=== PATIENT | male | born 1960 | race Caucasian/White ===

== ENCOUNTER → 2021-03-23 10:05 | Outpatient (BNVA) | payer BC, SELFPAY | PROVIDERS: Family Provider Nurse Practitioner; Visit Provider Family Medicine Adult Medicine | DX: J44.9 Chronic obstructive pulmonary disease, unspecified (principal); Z00.00 Encounter for general adult medical examination without abnormal findings; Z13.6 Encounter for screening for cardiovascular disorders | CPT/HCPCS: 80053; 83036; 84443; 85025; G0103 ==

== ENCOUNTER → 2022-02-27 09:41 | Outpatient (BNVA) | payer BC, SELFPAY | PROVIDERS: Family Provider Nurse Practitioner; PCP Family Medicine Adult Medicine; Visit Provider Internal Medicine Pulmonary Disease | DX: J44.1 Chronic obstructive pulmonary disease with (acute) exacerbation (principal); R05.8 Other specified cough; R06.02 Shortness of breath; J44.9 Chronic obstructive pulmonary disease, unspecified; Z87.891 Personal history of nicotine dependence | CPT/HCPCS: 71046 ==

== ENCOUNTER 2022-06-06 07:50 | Outpatient (CLI) | payer BC, SELFPAY | END 2022-06-06 07:51 | disposition home or self-care (01) | PROVIDERS: PCP Family Medicine Adult Medicine; Visit Provider Internal Medicine Pulmonary Disease | DX: J44.1 Chronic obstructive pulmonary disease with (acute) exacerbation (principal) | CPT/HCPCS: 94060; 94618; 94726; 94729; J7613 ==

== ENCOUNTER 2022-12-22 13:58 | Outpatient (CLI) | payer BC, SELFPAY ==
--- NOTE | 2022-12-22 14:05 | XR_ITS ---
WS: [id number] AP pelvis, frog leg views of both hips, 12/22/2022 Clinical Data: chronic L > R Hip pain Comparison: None. Findings: Both hips show narrowing, sclerosis, cyst formation and loss of the normal spherical head. There are no fractures or dislocations. The SI joints and pubic symphysis are normal. The soft tissues are unre markable. XR/XR hip BI 2V wo/w pel [id number] Impression: Bilateral severe osteoarthritis of the hips.
== END 2022-12-22 13:59 | disposition home or self-care (01) ==
LOC: RAD 14:02
PROVIDERS: PCP Family Medicine Adult Medicine; Visit Provider Family Medicine Adult Medicine
DX: M16.0 Bilateral primary osteoarthritis of hip (principal)
CPT/HCPCS: 73521